=== PATIENT | female | born 1970 | race Caucasian/White ===

== ENCOUNTER 2016-07-28 10:05 | Emergency (ER) | payer OTHER, BC ==
[~2016-07-28] VITALS: Ht 172.7 cm; Wt 113.4 kg
[2016-07-28] MEDS ORDERED: MULTCAP11 PO (10:13)
[2016-07-28] MEDS ORDERED: PROBCAP14 PO (10:13)
[2016-07-28] MEDS ORDERED: TYLE325T5 PO (12:24)
[2016-07-28] MEDS ORDERED: NAPR500T2 PO (12:24)
--- NOTE | 2016-07-28 12:30 | REP ---
CT BRAIN WITHOUT CONTRAST: CT brain is performed without IV contrast. I have no prior study for comparison. Patient reportedly has a history of neurofibromatosis. There is ill-defined nodular soft tissue thickening in the right periorbital region extending laterally along the left temporoparietal calvarial soft tissues. Surgical defect is seen in the left temporal bone at the base of the skull. Left globe is rotated medially with a somewhat oblong shape. Left cerebral atrophy is seen diffusely. There is evidence of prior craniotomy in the left frontoparietal region. Mild chronic left parietal periventricular lucency is seen in the white matter at the convexity. There is no acute hemorrhage. There is no extra-axial fluid collection. I see no evidence of acute fracture. There is no midline shift or mass effect. IMPRESSION: Chronic and postsurgical changes diffusely on the left as discussed above. No evidence of acute intracranial hemorrhage or skull fracture. Signed by Inder Aponte MD 07/28/2016 07:56 P
--- NOTE | 2016-07-28 12:32 | REP ---
CT CERVICAL SPINE: CT cervical performed in the axial plane with sagittal and coronal reconstruction images. There is no compression fracture or malalignment. There is normal cervical lordosis. There is no prevertebral soft tissue swelling. There is spurring of C5-C7 with mild disc space narrowing at C5-6 and moderate narrowing at C6-7. Uncovertebral spurring appears to cause mild to moderate bilateral foraminal narrowing at C5-6 and C6-7. IMPRESSION: Degenerative changes. No evidence of acute fracture or dislocation. Signed by Inder Aponte MD 07/28/2016 07:56 P
[2016-07-28 12:36] VITALS: BP 127/82
== END 2016-07-28 13:13 | disposition home or self-care (01) ==
LOC: M ED 10:57
DX: S00.83XA Contusion of other part of head, initial encounter (principal); S40.012A Contusion of left shoulder, initial encounter; V49.40XA Driver injured in collision with unspecified motor vehicles in traffic accident, initial encounter; Y92.410 Unspecified street and highway as the place of occurrence of the external cause; Y93.89 Activity, other specified; Y99.9 Unspecified external cause status